=== PATIENT | male | born 1945 | race Caucasian/White ===

== ENCOUNTER 2017-05-27 09:52 | Emergency (ER) | payer MEDICARE ==
[2017-05-27] MEDS ORDERED: Tamsulosin HCl 0.4 MG CAP ONE (10:36)
--- NOTE | 2017-05-27 10:51 | RAD ---
KUB: INDICATIONS: History of urinary tract infections and urinary hesitancy. COMPARISON: CT abdomen and pelvis dated 01/10/2015. FINDINGS/IMPRESSION: The lung bases are clear. The gallbladder is surgically absent. The bowel gas pattern is nonobstruc fredy. No suspicious calcification is evident. There has been interval placement of a right total hip prosthesis from the comparison CT exam. There is scattered degenerative and osteoarthritic change. IMPRESSION: No acute abnormality. POS: MALIKH
== END 2017-05-27 11:15 | disposition home or self-care (01) ==
LOC: SCSER 09:52
DX: K59.00 Constipation, unspecified (principal); R33.9 Retention of urine, unspecified; I10 Essential (primary) hypertension; E78.5 Hyperlipidemia, unspecified; E03.9 Hypothyroidism, unspecified; Z79.82 Long term (current) use of aspirin; Z79.899 Other long term (current) drug therapy
CPT/HCPCS: 74018

== ENCOUNTER 2017-08-25 20:49 | Observation (INO) | payer MEDICARE ==
[2017-08-25 21:28] LABS: #Basophils 0.1 thou/uL (0.0-0.2); #Eosinphils 0.3 thou/uL (0.0-0.7); #Lymphocytes 1.2 thou/uL (1.20-3.40); #Monocytes 0.7 thou/uL (0.11-0.59); #Neutrophils 4.7 thou/uL (1.40-6.50); %Basophils 1.7 % (0.0-1.0); %Eosinophils 3.8 % (0.0-10.0); %Lymphocytes 17.7 % (21.0-51.0); %Monocytes 9.8 % (0.0-10.0); %Neutrophils 67.1 % (42.0-75.0); Anisocytosis SLIGHT = 6-15 cells (100X) (0-5/hpf); Hemoglobin 14.1 g/dL (14.0-18.0); MDiff Complete? YES; Mean Corpuscular HGB CONC 31.9 g/dL (32.0-36.0); Mean Corpuscular Hemoglobin 24.5 pg (27.0-31.0); Mean Corpuscular Volume 76.9 fL (78.0-98.0); Mean Platelet Volume 7.4 fL (7.4-10.4); Microcytosis SLIGHT = 6-15 cells (100X) (0-5/hpf); PLT Morphology Comment Appears Adequate; Platelet Count 271 thou/uL (130-400); RBC Distribution Width 12.4 % (11.5-14.5); Red Blood Cell (RBC) Count 5.73 mill/uL (4.70-6.10); White Blood Cell (WBC) Count 6.9 thou/uL (4.8-10.8)
--- NOTE | 2017-08-25 21:34 | CT ---
CT BRAIN NONCONTRAST: 08/25/17 HISTORY: 72-year-old male with syncope, dizziness, and nausea. FINDINGS: There is no midline shift or any other mass effect. There is no evidence of acute intracranial hemor rhage, large cortical infarct, obstructive hydrocephalus, or extraaxial fluid collection. The calvar ium is intact. There is a slightly less than 1 cm focal hypodensity at the inferior aspect of the lef t basal ganglia. This is favored to be a dilated Virchow-Jenks space rather than an old lacunar infa rction. IMPRESSION: No acute intracranial findings. no atkinson POS: CAMERON
[2017-08-25 21:38] LABS: ALT (SGPT) 26 U/L (8-55); AST (SGOT) 20 U/L (5-34); Albumin 3.8 g/dL (3.4-4.8); Alkaline Phosphatase 85 U/L (40-150); Anion Gap 14 mmol/L (10-20); BUN (Urea Nitrogen) 17 mg/dL (8.4-25.7); Bilirubin, Total 0.2 mg/dL (0.2-1.2); CK (CPK) 101 U/L (30-200); CKMB 1.4 ng/mL (0-6.6); Calc. Creatinine Clearance 0 mL/min (70-130); Calcium 9.4 mg/dL (7.8-10.44); Carbon Dioxide 27 mmol/L (23-31); Chloride 104 mmol/L (98-107); Estimated GFR-MDRD 73; Globulin 3.2 g/dL (2.4-3.5); Glucose 119 mg/dL (83-110); Lipase 46 U/L (8-78); Potassium 4.2 mmol/L (3.5-5.1); Sodium 141 mmol/L (136-145); Troponin I Less than 0.010 ng/mL (< 0.028)
--- NOTE | 2017-08-25 21:56 | RAD ---
RADIOGRAPH CHEST 1 VIEW: 08/25/17 HISTORY: 72-year-old male with diaphoresis, dizziness, and syncope. FINDINGS: There are no air space densities, pulmonary edema, pneumothorax, or cardiomegaly. The lateral costop hrenic angles are sharp. IMPRESSION: No acute cardiopulmonary findings. no [] POS: MALIK
[2017-08-26 01:25] VITALS: BMI 33.5
[2017-08-26] MEDS ORDERED: hydrALAZINE 20 MG/ML VIAL SLOW IVP PRN (05:35)
[2017-08-26] MEDS ORDERED: Acetaminophen 325 MG TAB PO PRN (05:35)
[2017-08-26] MEDS ORDERED: Enalaprilat Dihydrate 1.25 MG/ML VIAL SLOW IVP PRN (05:35)
[2017-08-26] MEDS ORDERED: Acetaminophen 500 MG TAB PO PRN (05:37)
[2017-08-26] MEDS ORDERED: Levothyroxine Sodium 25 MCG TAB PO SCH (06:00)
--- NOTE | 2017-08-26 06:06 | HP ---
PRIMARY CARE PHYSICIAN: Dr. Calderon Alejo CHIEF COMPLAINT: Dizziness. HISTORY OF PRESENT ILLNESS: Mr. Gilmore is a pleasant 72-year-old gentleman who was seen at [facility] on 08/26/2017. Yesterday around 8:00 p.m. he was sitting down and watching television when he got disoriented. He r eports that everything felt fuzzy. He was diaphoretic and he lost equilibrium. He tried to get up a nd started falling onto his left. He sat down and again tried to get up, with a similar falling to t he left. He could not control his body to be able to sit down. He reports having a similar episode, although not as severe about 4 or 5 months ago. He went to [facility]. While in the emergency room, his symptoms resolved. REVIEW OF SYSTEMS: All other systems reviewed and found to be negative. PAST MEDICAL HISTORY: Hypertension, hypothyroidism, dyslipidemia, glaucoma. PAST SURGICAL HISTORY: Inguinal herniorrhaphy, colonoscopy, cholecystectomy for gallstone pancreatit is. FAMILY HISTORY: Significant for several strokes in his father. SOCIAL HISTORY: The patient denies tobacco use, alcohol use or recreational drug use. ALLERGIES: COCONUT OIL, HYDROCODONE and PENICILLIN. HOME MEDICATIONS: Vitamin C 1000 mg 2 times a day, calcium citrate 200 mg at bedtime, vitamin D3 500 0 units at bedtime, glucosamine chondroitin 1 tablet at bedtime, latanoprost eyedrops 1 drop to each eye at bedtime, Synthroid 25 mcg daily, lisinopril 20 mg daily, magnesium 400 mg at bedtime, Coenzym e Q10 100 mg at bedtime, Ocuvite soft gel 1 capsule 2 times a day, vitamin B complex 1 tablet at bedt juan david, vitamin E 400 units at bedtime and acetaminophen 1000 mg 2 times a day as needed. PHYSICAL EXAMINATION: GENERAL: Mr. Gilmore is awake and alert, not in acute distress. VITAL SIGNS: Blood pressure is 133/69, pulse 80, respiratory rate 18, and he is saturating 95% on ro om air. He is afebrile. He is obese, with a BMI of 33.6. EYES: No scleral icterus. No conjunctival pallor. ENT: Moist mucosal membranes, no oropharyngeal erythema or exudates. NECK: Supple, nontender, normal range of movement. Trachea is midline. RESPIRATORY: Accessory muscles of breathing are not active. Chest wall movements are symmetric bila terally. LUNGS: Clear to auscultation without wheeze, rhonchi or crepitations. CARDIOVASCULAR: S1 and S2 are heard, regular. Peripheral pulses palpable. No carotid bruit, no per icardial rub. ABDOMEN: Distended, nontender, bowel sounds are heard, no hepatomegaly, no splenomegaly. NEUROLOGIC: Cranial nerves II-XII intact. No focal motor or sensory deficits. Power is 5/5 in all 4 extremities. Deep tendon reflexes 2+, plantar reflexes downgoing bilaterally. MUSCULOSKELETAL: Power is 5/5 in all 4 extremities. SKIN: No rashes or subcutaneous nodules. LYMPHATIC: No cervical lymphadenopathy. PSYCHIATRIC: Normal mood, normal affect, the patient is oriented to person, place, and time. LABORATORY DATA: Mr. Gilmore's labs and investigations were reviewed. I reviewed his electrocardiog fabiola, which shows normal sinus rhythm, no ST changes to suggest an acute coronary syndrome. I also re viewed his noncontrast CT scan of the brain, which does not show any acute intracranial abnormalities . I also reviewed his chest x-ray, which does not show any pulmonary infiltrates. He has normal whi te count, normal hemoglobin, normal platelet count, unremarkable comprehensive metabolic profile, nor mal troponin I and normal lipase. ASSESSMENT AND PLAN: Mr. Gilmore is a pleasant 72-year-old gentleman who was seen at [facility] on 08/26/2017. His problem list includes: 1. Dizziness: Mr. Gilmore is presenting with a symptom of dizziness as well as falling over to the left side when he tried to walk. His symptoms are suggestive of transient ischemic attack. The luke ent will be admitted to the hospital for further management. I will continue him on aspirin and stat in. I will consult Neurology Service. We will check MRI of the brain, carotid Dopplers, and 2D echo cardiogram. 2. Hypothyroidism: Continue Synthroid, check TSH level. 3. Hypertension: Resume home medications, monitor vital signs and titrate antihypertensives as need ed. 4. Glaucoma: Continue home medications, including eyedrops. Many thanks for allowing me to participate in your patient's care. Please feel free to contact me wi th any questions or concerns. LEVEL OF RISK: High. LEVEL OF COMPLEXITY: High.
[2017-08-26] MEDS ORDERED: Lisinopril 20 MG TAB PO SCH (09:00)
[2017-08-26] MEDS ORDERED: Vit A,C & E/Lutein/Minerals Tablet PO SCH (09:00)
[2017-08-26] MEDS ORDERED: Aspirin 325 mg Enteric Coated Tablet PO SCH ×2 (09:00)
[2017-08-26] MEDS ORDERED: Enoxaparin Sodium 40 MG/0.4 ML SYRINGE SC SCH (09:00)
[2017-08-26] MEDS ORDERED: Ascorbic Acid 500 mg Chewable Tablet PO SCH (09:00)
--- NOTE | 2017-08-26 10:17 | MRI ---
NONCONTRAST MRI BRAIN: Date: 08-26-17 History: Syncope, dizziness, nausea. TIA. Comparison: CT head, 08-25-17 FINDINGS: There is an increased T2 weighted signal intensity structure in the inferior aspect left basal gangli a, probably related to dilated perivascular space. There is nonspecific focus of increased T2 weighte d signal intensity seen within the right parietal periventricular white matter which is nonspecific b ut likely reflective of mild chronic small vessel ischemic changes. There is no evidence of an acute infarction. The septum pellucidum and third ventricle are on the midline. There is mild cerebral volume loss, not unexpected for the patient's age. The ventricular system is normal in size, shape, and position. The re is evidence of a cavum septum pellucidum et vargae which is a normal variant. Appropriate flow voids are demonstrated at the base of the brain. The paranasal sinuses, orbits and r emainder of the skull base have a normal MRI appearance. IMPRESSION: No acute intracranial abnormality is demonstrated. POS: [facility]
--- NOTE | 2017-08-26 10:42 | ULT ---
CAROTID ARTERIAL DOPPLER ULTRASOUND: 08/26/2017 HISTORY: Transient ischemic attack. Assess for carotid artery stenosis. COMPARISON: None. TECHNIQUE: Multiplanar tripp-scale sonographic imaging of the arterial structures of the neck obtained with color -flow and spectral analysis. FINDINGS: Antegrade blood flow and normal arterial waveforms are seen within the carotid and vertebral system b ilaterally. There is minimal plaque within the proximal left internal carotid artery. VESSEL PSV (CM PER SECOND) EDV (CM PER SECOND) RIGHT CCA 126 22 RIGHT ICA 60 27 RIGHT ECA 68 10 LEFT CCA 106 20 LEFT ICA 72 29 LEFT ECA 91 13 RIGHT ICA/CCA RATIO 0.5 LEFT ICA/CCA RATIO: 0.7 IMPRESSION: Minimally elevated velocity within the proximal right common carotid artery at 126 cm per second, cor relating with a 50% to 69% stenosis, most likely in the 50% range. POS: CAMERON
[2017-08-26 12:21] VITALS: BP 141/82; TEMP 97.9
--- NOTE | 2017-08-26 17:26 | DIS ---
DATE OF ADMISSION: 08/25/2017 DATE OF DISCHARGE: 08/26/2017 DISCHARGE DIAGNOSES: Dizziness, hypothyroidism, hypertension, and glaucoma. HISTORY OF PRESENT ILLNESS/HOSPITAL COURSE: Mr. Gilmore is a pleasant 72-year-old, who reported a 1- day history of disorientation while watching TV. He said everything felt fuzzy. He was diaphoretic and he lost his equilibrium. He tried to get up and started falling onto his left and he had a simil ar episode, which was not as severe about 4-5 months ago. [facility] was [facility] and while there, his symptoms are resolved. Physical examination here was unremarkable as well as his labs. He was admitted for dizziness with p ossible TIA. His workup proved negative. He had an MRI of his brain, carotid Dopplers and 2D echogr am. The telemetry also did not reveal any acute abnormalities. He was discharged on aspirin, who wa s told of the need to be on a statin for secondary prevention, but he reported being on it several ye ars ago and did not want to continue on statins. He says he will follow up with his primary care lulu del castillo to further discuss as he has had myalgias while on statins in the past. He was discharged wit hout incident. DISCHARGE MEDICATIONS: Acetaminophen 500 mg b.i.d. p.r.n., aspirin 325 mg daily, ascorbic acid 1000 mg b.i.d., calcium carbonate 300 mg at bedtime, cholecalciferol 5000 units at bedtime, glucosamine ch ondroitin complex 1 tablet at bedtime, latanoprost 2.5 mL bottle 1 drop in each eye at bedtime, levot hyroxine 25 mcg daily, lisinopril 20 mg daily, magnesium oxide 400 mg at bedtime, ubidecarenone 100 m g at bedtime, vitamin C/vitamin E/Lutein/ mineral/omega-3 one capsule b.i.d., vitamin B complex 1 tab let at bedtime, vitamin E 4000 units at bedtime. PHYSICAL EXAMINATION: He was examined on the day of discharge. For details, refer to today's histor y and physical. LABORATORY DATA: WBC 6.9, hemoglobin 14.1, platelet count 271. Sodium 141, potassium 4.2, chloride 104, carbon dioxide 27, BUN 17, creatinine 1, glucose 119, calcium 9.4. Imaging as reported in HPI. CONSULTS: None. DIET: Heart healthy. CONDITION AT DISCHARGE: Stable and improved. PROCEDURES: None. CARE GOALS: To follow up with his primary care physician within 1 week of discharge. ACTIVITY: To resume as tolerated. Discharge time 65 minutes including chart review and documentation.
[2017-08-26] MEDS ORDERED: Folic Acid/Vit B Comp W-C PO SCH (21:00)
[2017-08-26] MEDS ORDERED: Calcium Citrate 950 MG TAB PO SCH (21:00)
[2017-08-26] MEDS ORDERED: Atorvastatin Calcium 10 MG TAB PO SCH (21:00)
[2017-08-26] MEDS ORDERED: Vitami E (Dl,Tocopheryl Acet) 400 UNITS CAP PO SCH (21:00)
[2017-08-26] MEDS ORDERED: Ubidecarenone 50 MG CAP PO SCH (21:00)
[2017-08-26] MEDS ORDERED: (Glucosam/Chondr-Msm1/D3/C/Mang [Glucosamine Chondroitin Comple PO SCH (21:00)
[2017-08-26] MEDS ORDERED: Magnesium Oxide 400 MG TAB PO SCH (21:00)
[2017-08-26] MEDS ORDERED: Latanoprost 0.005% Ophth Soln 2.5 ml Bottle EA EYE SCH (21:00)
== END 2017-08-26 15:28 | disposition home or self-care (01) ==
LOC: SCSER 20:49 → 2SW 21:59
PROVIDERS: ADMIT Internal Medicine; ATTEND Internal Medicine
DX: R42 Dizziness and giddiness (principal); I10 Essential (primary) hypertension; E03.9 Hypothyroidism, unspecified; E78.5 Hyperlipidemia, unspecified; H40.9 Unspecified glaucoma; Z79.899 Other long term (current) drug therapy; Z88.0 Allergy status to penicillin; Z88.5 Allergy status to narcotic agent; Z91.018 Allergy to other foods
CPT/HCPCS: 70450; 70551; 71045; 80053; 82550; 82553; 83690; 84484; 85025; 93005; 93306; 93880; 96372; 99285; G0378; J1650

== ENCOUNTER 2017-09-11 19:30 | Outpatient (CLI) | payer MEDICARE | END 2017-09-11 19:31 | disposition home or self-care (01) | LOC: SLEEPLAB 19:30 | PROVIDERS: ATTEND Family Medicine | DX: G47.33 Obstructive sleep apnea (adult) (pediatric) (principal); I10 Essential (primary) hypertension; E66.9 Obesity, unspecified; Z68.36 Body mass index [BMI] 36.0-36.9, adult | CPT/HCPCS: 95811 ==

== ENCOUNTER 2017-10-21 12:56 | Outpatient (CLI) | payer MEDICARE | END 2017-10-21 12:57 | disposition home or self-care (01) | LOC: DTY/OP 12:56 | PROVIDERS: ATTEND Family Medicine | DX: R73.03 Prediabetes (principal) | CPT/HCPCS: 97802 ==

== ENCOUNTER 2017-12-11 05:59 | Observation (INO) | payer MEDICARE ==
[2017-12-11] MEDS ORDERED: Benzocaine 20% Spray 60 ML CAN ONE (06:10)
[2017-12-11] MEDS ORDERED: Clindamycin 150 MG CAP ONE (06:10)
[2017-12-11] MEDS ORDERED: Dexamethasone 4 mg/ml Vial SLOW IVP SCH (12:00)
[2017-12-11] MEDS ORDERED: Dextrose 5 %-0.45 % NaCl 1,000 ML IV SCH (12:30)
[2017-12-11 12:33] LABS: Anion Gap 13 mmol/L (10-20); BUN (Urea Nitrogen) 18 mg/dL (8.4-25.7); Calc. Creatinine Clearance 0 mL/min (70-130); Calcium 9.2 mg/dL (7.8-10.44); Carbon Dioxide 24 mmol/L (23-31); Chloride 105 mmol/L (98-107); Estimated GFR-MDRD 61; Glucose 127 mg/dL (83-110); Potassium 4.1 mmol/L (3.5-5.1); Sodium 138 mmol/L (136-145)
[2017-12-11 12:37] LABS: #Basophils 0.1 thou/uL (0.0-0.2); #Eosinphils 0.2 thou/uL (0.0-0.7); #Neutrophils 7.8 thou/uL (1.40-6.50); %Basophils 1.4 % (0.0-1.0); %Eosinophils 2.4 % (0.0-10.0); %Lymphocytes 5.9 % (21.0-51.0); %Monocytes 10.3 % (0.0-10.0); Hemoglobin 14.7 g/dL (14.0-18.0); MDiff Complete? YES; Mean Corpuscular HGB CONC 31.2 g/dL (32.0-36.0); Mean Corpuscular Hemoglobin 24.4 pg (27.0-31.0); Mean Corpuscular Volume 78.1 fL (78.0-98.0); Mean Platelet Volume 8.7 fL (7.4-10.4); Microcytosis SLIGHT = 6-15 cells (100X) (0-5/hpf); Ovalocytes SLIGHT = 2-5 cells (100X) (0-1/hpf); Platelet Count 202 thou/uL (130-400); RBC Distribution Width 12.8 % (11.5-14.5); Red Blood Cell (RBC) Count 6.01 mill/uL (4.70-6.10); White Blood Cell (WBC) Count 9.7 thou/uL (4.8-10.8)
[2017-12-11 13:10] VITALS: BMI 34.2
[2017-12-11 13:11] VITALS: BP 130/75; TEMP 98.2
[2017-12-11] MEDS ORDERED: Clindamycin/D5W 900 MG in Premix Bag 1 BAG IVPB SCH (14:00)
--- NOTE | 2017-12-11 14:51 | CT ---
CT NECK WITH CONTRAST: Multiple axial images were obtained through the neck with IV enhancement. HISTORY: Dysphagia. Hoarseness. FINDINGS: The carotid glands, submandibular glands, and thyroid appear unremarkable. Nasopharynx unremarkable. The pharyngeal tonsils are mildly prominent. Review of the oropharynx shows very prominent palatine tonsils at Waldeyer's ring. The airway is sev ere narrowed at the level of the palatine tonsils. There is no evidence of peritonsillar abscess or fluid collection. Hypopharynx and larynx appear unremarkable. Nonspecific level I and level II lymph nodes. No evidence of adenopathy. Nonspecific level IV and l evel V nodes. Carotid space is unremarkable. [employer] space, parapharyngeal space, and retropharyngeal space appear unremarkable. Paranasal sinuses are well aerated. Mild degenerative changes in the cervical spine most prominent at C4-5, C5-6 levels. IMPRESSION: Very prominent tonsillar tissue at Waldeyer's ring producing airway constriction. No peritonsillar a bscess identified. Findings discussed with ER physician. POS: CAMERON
[2017-12-11] MEDS ORDERED: ISOVUE-370 76%-LOCM 1 ML ONE (15:04)
--- NOTE | 2017-12-11 15:41 | HP ---
DATE OF ADMISSION: 12/11/2017 PRIMARY CARE PHYSICIAN: Calderon Alejo M.D. CHIEF COMPLAINT: Hoarseness and difficulty swallowing. HISTORY OF PRESENT ILLNESS: This is a 72-year-old male who presents to [facility] complaining of hoarseness with associated difficulty swallowing over the last 48-72 ho urs. The patient states he was diagnosed with pharyngitis/tonsillitis and placed on Omnicef, taking approximately 4 doses of the medication. The patient states that soon after taking a dose of Omnicef , he noticed difficulty swallowing especially when drinking coffee. The patient states he had some h oarseness associated with the difficulty swallowing and shortness of breath. The patient denied any generalized rash, fever, chills, recent trauma or injury. The patient denied any recent dental proce dures. The patient states he has difficulty with seasonal allergies with rhinorrhea and nasal conges tion. The patient also states he has a history of obstructive sleep apnea, recently placed on noctur nal CPAP over the last 8-9 weeks. The patient admits to history of PENICILLIN allergy causing severe reaction as a child. The patient denied any recent exposure history, family members with similar sy mptoms or recent immunizations. The patient was evaluated in the emergency room, undergoing general evaluation and CT imaging of the soft tissues of the neck showing a prominent tonsillar tissue with a irway constriction. No peritonsillar abscess was identified. The patient did receive IV Decadron an d clindamycin in the emergency room and was referred to the observation unit after narrowing was note d on the CT imaging. ENT services were consulted telephonically; however, recommendations per ENT we re to follow up as an outpatient. The patient was observed without worsening airway constriction, dy spnea, hypoxia or worsening hoarseness. PAST MEDICAL HISTORY: 1. Seasonal allergies. 2. Obstructive sleep apnea with nocturnal CPAP. 3. Hyperlipidemia. 4. Benign prostatic hyperplasia. 5. Hypothyroidism. 6. Glaucoma. 7. Degenerative joint disease. PAST SURGICAL HISTORY: 1. Status post cholecystectomy. 2. Status post hernia repair. 3. Status post right total hip arthroplasty. CURRENT MEDICATIONS: 1. Cefdinir x4 doses. 2. Aspirin 325 mg p.o. daily. 3. Glucosamine 1500 mg p.o. daily. 4. Advil 200 mg p.r.n. 5. Xalatan 0.005% 1 drop to each eye at bedtime. 6. Synthroid 25 mcg p.o. daily. 7. Lisinopril 20 mg p.o. daily. 8. Multivitamin 1 tab p.o. daily. 9. L-arginine 500 mg p.o. daily. ALLERGIES: COCONUT OIL, HYDROCODONE, PENICILLIN, and CEPHALOSPORINS. FAMILY HISTORY: Positive for history of CVA and congestive heart failure. SOCIAL HISTORY: Patient resides in at [place], [place]. The patient owns a [employer]. No current alcohol, tobacco or illicit drug use. REVIEW OF SYSTEMS: The following complete review of systems was negative, unless otherwise mentioned in the HPI or below: Constitutional: Weight loss or gain, ability to conduct usual activities. Skin: Rash, itching. Eyes: Double vision, pain. ENT/Mouth: Nose bleeding, neck stiffness, pain, tenderness. Cardiovascular: Palpitations, dyspnea on exertion, orthopnea. Respiratory: Shortness of breath, wheezing, cough, hemoptysis, fever or night sweats. Gastrointestinal: Poor appetite, abdominal pain, heartburn, nausea, vomiting, constipation, or diarrhea. Genitourinary: Urgency, frequency, dysuria, nocturia. Musculoskeletal: Pain, swelling. Neurologic/Psychiatric: Anxiety, depression. Allergy/Immunologic: Skin rash, bleeding tendency. PHYSICAL EXAMINATION: VITAL SIGNS: Currently, blood pressure 130/75, pulse 88, respiratory rate 20, temperature 98.2 degre es Fahrenheit, O2 saturation 94% on room air. GENERAL APPEARANCE: This is a 72-year-old male, appearing younger than stated age, alert a nd oriented x3, pleasant, smiling, laughing, in no acute distress. HEENT: Pupils are equal, round, and reactive to light and accommodation. Extraocular muscles are in tact. No scleral icterus, no conjunctival injection. Nares patent. OP is clear. Mild tonsillar ed theron with minimal erythema noted. No glossal edema noted. Teeth in fair repair. NECK: Supple, no cervical adenopathy, no thyromegaly, no carotid bruits, no JVD appreciated. Cervic al spine with full active and passive range of motion. No meningeal signs noted. CHEST: Lungs are clear to auscultation bilaterally. CARDIOVASCULAR: S1, S2, without noted murmur, rub or gallop. ABDOMEN: Obese, soft, nontender, nondistended. Bowel sounds are positive in all four quadrants. No hepatosplenomegaly, no abdominal bruits, no rebound or guarding appreciated. EXTREMITIES: Warm and dry with fair turgor. No clubbing, cyanosis or asymmetric edema appreciated. NEUROLOGIC: Cranial nerves II-XII are grossly intact. There are no focal or lateralizing signs appr eciated. PERTINENT LABORATORY AND X-RAY FINDINGS: Sodium 138, potassium 4.1, chloride 105, CO2 24, BUN 18, cr eatinine 1.17, estimated GFR 61, glucose 127. Lactic acid level 1.0, calcium 9.2. CBC showed a whit e blood cell count 9.7, hemoglobin 14.7, hematocrit 47, platelet count 202 with 80% neutrophils. Inf luenza A and B antigen 12/11/2017 negative. Group A streptococcal throat screen 12/11/[address] of the soft tissues of the neck dated 12/11/2017 showed prominent palatine tonsils bilaterally. Airway narrowing noted at the level of the palatine tonsils. No peritonsillar abscess or fluid jess ection noted. Telemetry monitoring shows sinus mechanism, heart rates in the 90s. ASSESSMENT AND PLAN: 1. Tonsillitis/pharyngitis. Continue clindamycin 150 mg p.o. q.6 hours x5 days. Continue prednison e 40 mg p.o. daily x3 days, followed by 20 mg p.o. daily x 3 days, followed by 10 mg p.o. daily x3 da ys. 2. Tonsillar edema. Recommend ENT followup as an outpatient. See #1 above. Soft mechanical diet. 3. Hypertension. Hold lisinopril x48 hours. 4. Obstructive sleep apnea with nocturnal CPAP. Stable currently. No evidence of hypoxia. Continu e nocturnal CPAP at home. 5. Code status is FULL. Surrogate medical decision maker is the patient's spouse. DISPOSITION: Discharged home 12/11/2017. Follow up with Dr. Calderon Alejo within 3 days of dis charge. The patient will follow up with Dr. Carroll with ENT service in 3-5 days after discharge.
== END 2017-12-11 15:16 | disposition home or self-care (01) ==
LOC: SCSER 05:59 → 2SW 12:44
PROVIDERS: ADMIT Family Medicine; ATTEND Family Medicine
DX: J35.8 Other chronic diseases of tonsils and adenoids (principal); I10 Essential (primary) hypertension; G47.33 Obstructive sleep apnea (adult) (pediatric); E03.9 Hypothyroidism, unspecified; H40.9 Unspecified glaucoma; M19.90 Unspecified osteoarthritis, unspecified site; N40.0 Benign prostatic hyperplasia without lower urinary tract symptoms; Z79.82 Long term (current) use of aspirin; Z79.899 Other long term (current) drug therapy; Z88.0 Allergy status to penicillin; Z88.5 Allergy status to narcotic agent; Z88.1 Allergy status to other antibiotic agents
CPT/HCPCS: 70491; 80048; 83605; 85025; 87040; 87081; 87430; 87804; 96361; 96365; 96375; J1100; J3490

== ENCOUNTER 2018-02-16 14:31 | Outpatient (CLI) | payer MEDICARE ==
--- NOTE | 2018-02-16 16:18 | MRI ---
EXAM: LUMBAR SPINE MRI WITH IV CONTRAST: 02/16/18 HISTORY: 72-year-old male with history of lumbar radiculopathy, M54.16. Low back pain radiating down to left h ip and thigh for several weeks. There are multiple T2 hyperintense, T1 hypointense circumscribed nodu lar foci involving both kidneys up to 4.5 cm on the right side statistically cysts but these are not completely visualized or characterized on this study. Conus medullaris region is unremarkable termina ting at The upper L1 level. At L1-2, mild ligament and facet hypertrophic changes without significant associated stenosis. At L2-3, there is some disc bulging with ligament and facet hypertrophic changes with some mild left lateral recess stenosis and left foraminal stenosis. At L3-4, there is more prominent ligament and facet hypertrophic changes with some diffuse disc bulgi ng with moderate central canal and bilateral lateral recess stenosis and moderate bilateral foraminal stenosis. At L4-5, there is approximately 0.5 cm of anterolisthesis with severe central canal and lateral reces s stenosis and moderate right foraminal stenosis and mild left foraminal stenosis. At L5-S1, there is some right paracentral and posterolateral disc osteophytosis changes with fairly e xtensive ligament and facet hypertrophic changes with some fluid within the facet joints with resulta nt mild right lateral recess stenosis and moderate to severe right foraminal stenosis. No significant abnormal marrow signal. IMPRESSION: Multilevel variable severity canal, lateral recess, and foraminal stenosis as above. Multiple bilater al circumscribed renal nodular foci statistically a cyst but not adequately characterized. POS: CAMERON
== END 2018-02-16 14:32 | disposition home or self-care (01) ==
LOC: SCSMRI 14:31
PROVIDERS: ATTEND Family Medicine
DX: M54.16 Radiculopathy, lumbar region (principal); M48.061 Spinal stenosis, lumbar region without neurogenic claudication; M48.07 Spinal stenosis, lumbosacral region; N28.1 Cyst of kidney, acquired
CPT/HCPCS: 72148

== ENCOUNTER 2018-02-19 19:06 | Emergency (ER) | payer MEDICARE ==
[2018-02-19] MEDS ORDERED: diphenhydrAMINE 50 MG/ML VIAL ONE (20:00)
[2018-02-19] MEDS ORDERED: Metoclopramide HCl 10 MG/2 ML VIAL ONE (20:00)
--- NOTE | 2018-02-19 20:09 | CT ---
CT BRAIN WITHOUT CONTRAST: 02/19/18 HISTORY: Headache and hypertension. FINDINGS: Comparison made with the exam of 08/25/17. No evidence of infarct, hemorrhage, midline shift or abnormal extra-axial fluid collections are seen. The ventricular size is stable and the basilar cisterns are patent. A prominent left sided perivascu lar space is again seen. The bony calvarium is intact. The visualized paranasal sinuses and mastoids air cells are well aerated. IMPRESSION: No CT evidence of acute intracranial process. POS: JOVITAA
[2018-02-19 20:19] LABS: ALT (SGPT) 60 U/L (8-55); AST (SGOT) 31 U/L (5-34); Albumin 4.2 g/dL (3.4-4.8); Alkaline Phosphatase 83 U/L (40-150); Anion Gap 14 mmol/L (10-20); BUN (Urea Nitrogen) 15 mg/dL (8.4-25.7); Bilirubin, Total 0.3 mg/dL (0.2-1.2); CK (CPK) 97 U/L (30-200); Calc. Creatinine Clearance 0 mL/min (70-130); Calcium 9.9 mg/dL (7.8-10.44); Carbon Dioxide 27 mmol/L (23-31); Chloride 104 mmol/L (98-107); Estimated GFR-MDRD 72; Globulin 3.5 g/dL (2.4-3.5); Glucose 119 mg/dL (83-110); Potassium 4.1 mmol/L (3.5-5.1); Protein, Total 7.7 g/dL (5.8-8.1); Sodium 141 mmol/L (136-145)
[2018-02-19 20:45] LABS: Free T4 (Free Thyroxine) 0.89 ng/dL (0.70-1.48); Thyroid Stimulating Hormone 1.6073 uIU/mL (0.35-4.94)
[2018-02-19] MEDS ORDERED: Dexamethasone 4 mg/ml Vial ONE (20:46)
[2018-02-19] MEDS ORDERED: Ketorolac Tromethamine 30 MG/ML VIAL ONE (20:46)
[2018-02-19 20:54] LABS: #Basophils 0.1 thou/uL (0.0-0.2); #Eosinphils 0.2 thou/uL (0.0-0.7); #Lymphocytes 1.2 thou/uL (1.20-3.40); #Monocytes 0.7 thou/uL (0.11-0.59); %Basophils 1.2 % (0.0-1.0); %Eosinophils 2.5 % (0.0-10.0); %Lymphocytes 14.3 % (21.0-51.0); %Monocytes 8.8 % (0.0-10.0); %Neutrophils 73.2 % (42.0-75.0); Hemoglobin 15.8 g/dL (14.0-18.0); Mean Corpuscular HGB CONC 29.2 g/dL (32.0-36.0); Mean Corpuscular Hemoglobin 23.7 pg (27.0-31.0); Mean Corpuscular Volume 81.2 fL (78.0-98.0); Mean Platelet Volume 9.3 fL (7.4-10.4); Platelet Count 270 thou/uL (130-400); RBC Distribution Width 12.5 % (11.5-14.5); Red Blood Cell (RBC) Count 6.65 mill/uL (4.70-6.10); White Blood Cell (WBC) Count 8.2 thou/uL (4.8-10.8)
--- NOTE | 2018-02-19 21:07 | CT ---
CT ANGIO OF BRAIN PERFORMED WITH INTRAVENOUS CONTRAST ENHANCEMENT WITH 3D RECONSTRUCTIONS: 02/19/18 HISTORY: Hypertension, severe headache. Overall, a good angiographic examination was obtained. The vertebral arteries are codominant. The basilar artery is normal in appearance. Posterior cerebral arteries are unremarkable. the anterior middle cerebral arteries and their branches appear normal. T here is a patent big sandy of [place] noted. No aneurysms are identified. IMPRESSION: Unremarkable CT angio of brain. POS: MLAIK
[2018-02-19] MEDS ORDERED: Diazepam 5 MG TAB ONE ×2 (21:14→21:15)
[2018-02-19] MEDS ORDERED: Diazepam 2.5 MG GEL ONE (21:14)
== END 2018-02-19 22:10 | disposition home or self-care (01) ==
LOC: SCSER 19:06
DX: R51 Headache (principal); G89.29 Other chronic pain; I10 Essential (primary) hypertension; E03.9 Hypothyroidism, unspecified; R73.03 Prediabetes; G47.30 Sleep apnea, unspecified; E78.5 Hyperlipidemia, unspecified
CPT/HCPCS: 70450; 70496; 80053; 82550; 84439; 84443; 84484; 85025; 96365; 96375; J1100; J1200; J1885; J2765

== ENCOUNTER 2018-02-25 09:48 | Outpatient (CLI) | payer MEDICARE ==
--- NOTE | 2018-02-25 11:11 | RAD ---
EXAM: LUMBAR SPINE THREE VIEWS: History: 72-year-old male with history of lumbar foraminal stenosis, M99.83. FINDINGS: Multilevel disc osteophytosis and facet arthrosis. Mild anterolisthesis of L4 on L5 without abnormal translation between flexion and extension. No focal bone lesion. No acute fracture. IMPRESSION: Mild anterolisthesis of L4 on L5 without abnormal translation between flexion and extension. Lumbar s pondylosis. POS: C
== END 2018-02-25 09:49 | disposition home or self-care (01) ==
LOC: RAD 09:48
PROVIDERS: ATTEND Nurse Practitioner Family
DX: M48.061 Spinal stenosis, lumbar region without neurogenic claudication (principal); M47.816 Spondylosis without myelopathy or radiculopathy, lumbar region; M43.16 Spondylolisthesis, lumbar region
CPT/HCPCS: 72100

== ENCOUNTER 2018-02-26 08:53 | Outpatient (CLI) | payer MEDICARE ==
--- NOTE | 2018-02-26 12:09 | ULT ---
ULTRASOUND RENAL BILATERAL STANDARD: History: MRI follow up. Comparison: Lumbar spine MRI 02-16-18. FINDINGS: Real-time grayscale and color evaluation of the kidneys and urinary bladder was performed. There are multiple bilateral renal cysts. No abnormal mass. Urinary bladder pre void volume is 86 ml. No renal mass or hydronephrosis. IMPRESSION: Multiple bilateral simple renal cysts. POS: MALIK
== END 2018-02-26 08:54 | disposition home or self-care (01) ==
LOC: SCSULT 08:53
PROVIDERS: ATTEND Family Medicine
DX: N28.9 Disorder of kidney and ureter, unspecified (principal); N28.1 Cyst of kidney, acquired
CPT/HCPCS: 76770

== ENCOUNTER 2018-08-16 08:14 | Outpatient (CLI) | payer MEDICARE ==
--- NOTE | 2018-08-16 09:00 | ULT ---
BILATERAL CAROTID DUPLEX ULTRASOUND: HISTORY: Carotid stenosis TECHNIQUE: Grayscale, color-flow and spectral Doppler ultrasound imaging of the extracranial carotid artery syst ems was performed bilaterally. FINDINGS: Small amount of plaque is seen in the left proximal ICA. The peak systolic velocity in the right ICA measures 48 cm/s with an end-diastolic velocity of 12 cm/ s and a systolic ratio of 0.62. The peak systolic velocity in the left ICA measures 63 cm/s with an end-diastolic velocity of 24 cm/s and a systolic ratio of 0.64. Flow in both vertebral arteries remains antegrade. IMPRESSION: No evidence of hemodynamically significant stenosis in either ICA
--- NOTE | 2018-08-16 10:31 | RAD ---
Lumbar spine: 4 views INDICATIONS:Low back pain COMPARISON:02/25/2018 FINDINGS: Vertebral bodies maintain height. There is a grade 1 spondylolysis at L4-5 which is stable from prior exam. Prominent facet hypertrophy. Loss of disc space at all levels, most pronounced at L4-5 and L5-S1 No soft tissue abnormality. IMPRESSION: Degenerative changes of lumbar spine. Stable from prior exam.
--- NOTE | 2018-08-16 10:32 | RAD ---
XR Shoulder Rt 3 View STANDARD HISTORY: Acute pain of the right shoulder FINDINGS: No fracture or dislocation is identified. There are degenerative changes in the acromioclavicular and glenohumeral joints.
== END 2018-08-16 08:15 | disposition home or self-care (01) ==
LOC: SCSULT 08:14
PROVIDERS: ATTEND Family Medicine
DX: M25.511 Pain in right shoulder (principal); I65.21 Occlusion and stenosis of right carotid artery; M43.16 Spondylolisthesis, lumbar region; M48.061 Spinal stenosis, lumbar region without neurogenic claudication; M19.011 Primary osteoarthritis, right shoulder; M47.816 Spondylosis without myelopathy or radiculopathy, lumbar region
CPT/HCPCS: 72110; 93880

== ENCOUNTER 2019-03-24 14:10 | Outpatient (CLI) | payer MEDICARE | END 2019-03-24 14:11 | disposition home or self-care (01) | LOC: CTENTCT 14:10 | PROVIDERS: ATTEND Otolaryngology Plastic Surgery within the Head & Neck | DX: J32.9 Chronic sinusitis, unspecified (principal) | CPT/HCPCS: 70486 ==

== ENCOUNTER 2020-07-16 08:48 | Outpatient (CLI) | payer MEDICARE | END 2020-07-16 08:49 | disposition home or self-care (01) | LOC: SCSRAD 08:48 | PROVIDERS: ATTEND Nurse Practitioner Family | DX: M25.511 Pain in right shoulder (principal); M54.2 Cervicalgia; M19.011 Primary osteoarthritis, right shoulder; M47.812 Spondylosis without myelopathy or radiculopathy, cervical region | CPT/HCPCS: 72040 ==

== ENCOUNTER 2021-12-18 10:04 | Outpatient (CLI) | payer MEDICARE | END 2021-12-18 10:05 | disposition home or self-care (01) | LOC: SCSRAD 10:04 | PROVIDERS: ATTEND Family Medicine | DX: R05.1 Acute cough (principal) | CPT/HCPCS: 71046 ==